=== PATIENT | female | born 2000 | race Caucasian/White ===

== ENCOUNTER 2022-12-11 15:15 | Emergency (ER) | payer OTHER, BC, SELFPAY ==
[2022-12-11 15:17] VITALS: BP 147/91; PULSE 70; RESP 18; TEMP 36.9; O2SAT 97; BMI 40.3
--- NOTE | 2022-12-11 15:33 | XR_ITS ---
PROCEDURE INFORMATION: Exam: XR Right Foot Exam date and time: 12/11/2022 3:37 PM Age: 22 years old Clinical indication: Pain; Ankle and foot; Right TECHNIQUE: Imaging protocol: Radiologic exam of the right foot. Views: 3 or more views. COMPARISON: No relevant prior studies available. FINDINGS: Bones/joints: Normal alignment. No fracture. Joint surfaces preserved. Soft tissues: Normal. IMPRESSION: Normal right foot.
--- NOTE | 2022-12-11 15:33 | XR_ITS ---
PROCEDURE INFORMATION: Exam: XR Right Ankle Exam date and time: 12/11/2022 3:37 PM Age: 22 years old Clinical indication: Pain; Ankle; Right TECHNIQUE: Imaging protocol: Radiologic exam of the right ankle. Views: 3 or more views. COMPARISON: No relevant prior studies available. FINDINGS: Bones/joints: Osseous structures are intact. Joint surfaces are preserved. No significant degenerative joint changes. No fracture or malalignment. Soft tissues: Normal. IMPRESSION: Normal right ankle
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
[2022-12-11 16:41] VITALS: BP 147/91; PULSE 70; RESP 18; TEMP 36.9; O2SAT 97
== END 2022-12-11 16:41 | disposition home or self-care (01) ==
PROVIDERS: Emergency Provider Nurse Practitioner Family
DX: S93.601A Unspecified sprain of right foot, initial encounter (principal); V49.60XA Unspecified car occupant injured in collision with unspecified motor vehicles in traffic accident, initial encounter
CPT/HCPCS: 73610; 73630; 99204; 99212; G0463